=== PATIENT | male | born 1960 | race Caucasian/White ===

== ENCOUNTER 2018-10-09 09:41 | Emergency (ER) | payer OTHER ==
[~2018-10-09] VITALS: Ht 182.9 cm; Wt 99.8 kg
--- OUTSIDE RECORDS SUMMARY | ~2018-10-09 | XMS | Clinical Summary ---
Demographics + + + | Address | [address] | | | [place] [address] | + + + | Home Phone | | + + + | Preferred Language | Unknown | + + + | Marital Status | | + + + | Restoration Affiliation | 1038 | + + + | Race | Unknown | + + + | Ethnic Group | Unknown | + + + Author + + + | Author | [facility] | | | and [place] | + + + | Organization | [facility] | | | and [place] | + + + | Address | Unknown | + + + | Phone | Unavailable | + + + Support + + + + + | Name | Relationship | Address | Phone | + + + + + | Elizabeth Kenyon | ECON | [address] | | | | | [address] | | | | | [address] | | + + + + + Care Team Providers + +------+ + | Care Poultry Pathologist Name | Role | Phone | + +------+ + | Bo Anglin MD | PP | | + +------+ + Allergies No Known Allergies Current Medications + + +-------+---------+------+------+-------+ | Prescription | Sig. | Disp. | Refills | Star | End | Statu | | | | | | t | Date | s | | | | | | Date | | | + + +-------+---------+------+------+-------+ | varenicline | Take 1 mg by mouth | | | 03/09 | | Activ | | (CHANTIX) 1 MG | Every other day. | | | 09/25 | | e | | tablet | | | | 12 | | | + + +-------+---------+------+------+-------+ | cholestyramine | take 4 GM by mouth | | | 09/0 | | Activ | | light (PREVALITE) 4 | 3-4 times daily as | | | 01/25 | | e | | GM/DOSE powder | needed | | | 12 | | | + + +-------+---------+------+------+-------+ Active Problems + + + | Problem | Noted Date | + + + | FINGER SPRAIN | 03/15/2012 | + + + | PANCREATITIS | | + + + | ABDOMINAL PAIN, GENERALIZED | | + + + | COLONIC POLYPS, ADENOMATOUS, HX OF | | + + + Social History + +-------+ +--------+------+ | Tobacco Use | Types | Packs/Day | Years | Date | | | | | Used | | + +-------+ +--------+------+ | Never Assessed | | | | | + +-------+ +--------+------+ + + + | Sex Assigned at | Date Recorded | | | | + + + | Not on file | | + + + Last Filed Vital Signs + + + + | Vital Sign | Reading | Time Taken | + + + + | Blood Pressure | 107/68 | 03/15/2012 0000 PDT | + + + + | Pulse | - | - | + + + + | Temperature | - | - | + + + + | Respiratory Rate | - | - | + + + + | Oxygen Saturation | - | - | + + + + | Inhaled Oxygen | - | - | | Concentration | | | + + + + | Weight | 94.6 kg (208 lb 8 | 03/15/2012 0000 PDT | | | oz) | | + + + + | Height | 188 cm (6' 2") | 11/25/2009 0000 PDT | + + + + | Body Mass Index | 26.77 | 03/15/2012 0000 PDT | + + + + Plan of Treatment + + + + + | Health Maintenance | Due Date | Last Done | Comments | + + + + + | Vaccine: | | | | | Dtap/Tdap/Td (1 - | 8 | | | | Tdap) | | | | + + + + + | Vaccine: Zoster (1 | | | | | of 2) | 9 | | | + + + + + | Vaccine: Influenza | | | | | (#1) | 8 | | | + + + + + Results Not on filefrom Last 3 Months Insurance + +--------+ +------+ +---------+ | Payer | Benefi | Subscriber | Type | Phone | Address | | | t Plan | ID | | | | | | / | | | | | | | Group | | | | | + +--------+ +------+ +---------+ | [employer] | PHP | [id number] | PPO | [id number] | | | PLAN | [place] | | | [phone] | | | [address] | | | | | | | [place] | | | | | + +--------+ +------+ +---------+ + +--------+ +--------+ + + | Guarantor Name | Accoun | Relation to | Date | Phone | Billing Address | | | t Type | Patient | of | | | | | | | | | | + +--------+ +--------+ + + | KRISTI KENYON | Person | Self [birth year] 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
--- OUTSIDE RECORDS SUMMARY | ~2018-10-09 | XMS | Clinical Summary ---
Demographics + + + | Address | [address] | | | [place] [address] | + + + | Home Phone | | + + + | Preferred Language | Unknown | + + + | Marital Status | | + + + | Religion Affiliation | 1038 | + + + | Race | Unknown | + + + | Ethnic Group | Unknown | + + + Author + + + | Author | [facility] | | | and [place] | + + + | Organization | [facility] | | | and [place] | + + + | Address | Unknown | + + + | Phone | Unavailable | + + + Support + + + + + | Name | Relationship | Address | Phone | + + + + + | Elizabeth Kenyon | ECON | [address] | | | | | [address] | | | | | [address] | | + + + + + Care Team Providers + +------+ + | Care Mortgage Loan Originator Name | Role | Phone | + [...] +---------+ | [employer] | PHP | [id number] | PPO | [phone] | | PLAN | [place] | [...] | | al/Fam | | 1960 | [phone] | [place] | | | k[place]ina | | | [phone]: | [address] | | | | | | | | | | | | | [phone] | | | | | | | [phone] | | + +--------+ +--------+ + +
[~2018-10-09 09:41] MED LIST: CELEBREX200 MG PO; CHOLESTYRAMINE R5 GM MISC; COMBIVENT RESPIM4 GM INH; NORCO 5-325 TA1 EACH PO; PERCOCET 10-321 EACH PO; PERCOCET 7.5-31 EACH PO; PROZAC40 MG PO; TRAMADOL HCL50 MG PO
--- OUTSIDE RECORDS SUMMARY | 2018-10-09 09:46 | XMS ---
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 [facility] has no Care Guidelines for this patient. Nando VISIT COUNT (12 MO.) 1 JOSEFINA Enrique TOTAL 1 NOTE: Visits indicate total known visits. ED/C VISIT TRACKING (12 MO.) 10/09/2018 09:41 JOSEFINA Mendiola OR TYPE: Emergency COMPLAINT: - FINGER INJURY INPATIENT VISIT TRACKING (12 MO.) No inpatient visits to display in this time frame [id number]
[2018-10-09] MEDS ORDERED: BUPROPION HCL150 M2 PO (09:54)
== END 2018-10-09 11:00 | disposition home or self-care (01) ==
LOC: ED 09:41
DX: S62.635A Displaced fracture of distal phalanx of left ring finger, initial encounter for closed fracture (principal); Y04.0XXA Assault by unarmed brawl or fight, initial encounter; Z87.891 Personal history of nicotine dependence; Z79.899 Other long term (current) drug therapy
CPT/HCPCS: 73140; 99283

== ENCOUNTER 2021-10-22 18:08 | Emergency (ER) | payer OTHER ==
[~2021-10-22] VITALS: Ht 188 cm; Wt 99.8 kg
[~2021-10-22 18:08] MED LIST changes: +BUPROPION HCL150 M2 PO
[2021-10-22] MEDS ORDERED: PERCOCET 5-3251 EACH PO (21:18)
== END 2021-10-22 21:50 | disposition home or self-care (01) ==
LOC: ED 18:08
DX: S02.31XA Fracture of orbital floor, right side, initial encounter for closed fracture (principal); F17.200 Nicotine dependence, unspecified, uncomplicated; Z79.899 Other long term (current) drug therapy; Y09 Assault by unspecified means
CPT/HCPCS: 70486; 96372; 99284-25; J1885

== ENCOUNTER 2022-12-02 16:51 | Emergency (ER) | payer OTHER ==
[~2022-12-02] VITALS: Ht 188 cm; Wt 99.8 kg
[~2022-12-02 16:51] MED LIST changes: +PERCOCET 5-3251 EACH PO
[2022-12-02] MEDS ORDERED: ESCITALOPRAM OX10 MG PO (17:04)
[2022-12-02] MEDS ORDERED: HYDROCODON-ACE1 EA10 PO (17:44)
[2022-12-02] MEDS ORDERED: CEPHALEXIN500 M1 PO (17:44)
[2022-12-02 19:30] VITALS: BP 114/70
== END 2022-12-02 18:39 | disposition home or self-care (01) ==
LOC: ED 16:51
DX: S62.615B Displaced fracture of proximal phalanx of left ring finger, initial encounter for open fracture (principal); S61.411A Laceration without foreign body of right hand, initial encounter; W22.8XXA Striking against or struck by other objects, initial encounter; F17.200 Nicotine dependence, unspecified, uncomplicated; Z79.899 Other long term (current) drug therapy
CPT/HCPCS: 12001; 73130; 90471; 90714; 99283-25

== ENCOUNTER 2023-04-24 08:33 | Emergency (ER) | payer OTHER ==
[~2023-04-24] VITALS: Ht 188 cm; Wt 100.1 kg
[~2023-04-24 08:33] MED LIST changes: +CEPHALEXIN500 M1 PO; +ESCITALOPRAM OX10 MG PO; +HYDROCODON-ACE1 EA10 PO
[2023-04-24] MEDS ORDERED: TERBINAFINE HC250 MG PO (08:44)
[2023-04-24 08:52] LABS: BASOPHILS 0.4 % (0-2); EOSINOPHILS 4.1 % (0-6); HEMATOCRIT 45.2 % (35.0-50.0); HEMOGLOBIN 15.3 g/dL (12.0-18.0); LYMPHOCYTES 31.8 % (24-44); MCH 32.4 (27-36); MCHC 33.9 g/dl (30-36); MCV 95.6 fl (81-99); NEUTROPHILS 53.7 % (39-80); PLATELET COUNT 155 K/uL (140-440); RBC 4.73 M/ul (4.3-5.7); RDW 13.5 (10.5-15.0)
[2023-04-24 09:10] LABS: ALBUMIN 3.7 g/dL (3.4-5.0); ALBUMIN/GLOBULIN RATIO 1.28 (1.1-2.4); ANION GAP 11.5 (7-21); BILIRUBIN, TOTAL 0.6 ng/dL (0.2-1.0); BUN/CREATININE RATIO 20.27 (6.0-28.6); CALCIUM 8.4 mg/dL (8.5-10.1); CREATININE, SERUM 0.74 mg/dL (0.70-1.30); POTASSIUM 4.5 mmol/L (3.5-5.1); PROTEIN, TOTAL 6.6 g/dL (6.4-8.2)
[2023-04-24 11:12] VITALS: BP 122/84
--- NOTE | 2023-04-24 22:39 | EKG ---
[facility] [address] [place] [address] Signed Sinus bradycardia Otherwise normal ECG When compared with ECG of 10:15, No significant change was found Confirmed by Santos Marcos MD () on 04/24/2023 10:39:04 PM Electronically Signed By: SANTOS MARCOS MD 04/24/232238 PATIENT NAME: KRISTI KENYON Electrocardiogram DATE OF : 56 PHYSICIAN: SANTOS MARCOS MD REPORT #: [id number] REPORT IS CONFIDENTIAL AND NOT TO BE RELEASED WITHOUT AUTHORIZATION
== END 2023-04-24 11:12 | disposition home or self-care (01) ==
LOC: ED 08:33
PROVIDERS: Emergency Medicine
DX: R07.9 Chest pain, unspecified (principal); R10.9 Unspecified abdominal pain; F17.210 Nicotine dependence, cigarettes, uncomplicated; Z79.899 Other long term (current) drug therapy
CPT/HCPCS: 36415; 71045; 80053; 83735; 84484; 85025; 93005; 93010; A9270